=== PATIENT | female | born 1935 | race Caucasian/White ===

== ENCOUNTER 2018-02-02 03:04 | Emergency (ER) | payer OTHER, BC ==
[~2018-02-02] VITALS: Ht 160 cm; Wt 73.1 kg
[~2018-02-02 03:04] MED LIST: ADVAIR 100/501 DISK IH; ANTIVERT25 MG PO; CALCIUM 500 MG1 EACH PO; CIPRO500 MG PO; LIPITOR20 MG PO; ONE DAILY FOR1 EAC3 PO; PROAIR HFA8.5 GM IH; PYRIDIUM200 MG PO; TIROSINT50 MCG PO; VITAMIN C1000 MG PO; ZYRTEC10 M1 PO
[2018-02-02 05:22] LABS: HEMATOCRIT 41.6 % (36.0-46.0); HEMOGLOBIN 14.1 G/DL (11.9-15.5); MCH 32.5 PG (29.0-34.0); MCHC 33.9 G/DL (30.0-36.0); MCV 95.9 FL (83-99); RBC DIS.WIDTH-SD 46.4 % (39-53); RED BLOOD COUNT 4.34 M/uL (3.80-5.20); WHITE BLOOD COUNT 8.4 K/uL (4.1-10.2)
[2018-02-02 05:33] LABS: CHLORIDE 106 mEq/L (99-109); POTASSIUM 4.2 mEq/L (3.7-5.4); SODIUM 144 mEq/L (136-147)
[2018-02-02 05:35] LABS: GLUCOSE 101 mg/dL (70-99)
[2018-02-02 05:39] LABS: CREATININE 0.8 mg/dL (0.6-1.3); GFR ESTIMATE (CALCULATED) > 59 mL/min/
[2018-02-02] MEDS ORDERED: SKELAXIN800 MG PO (05:39)
[2018-02-02] MEDS ORDERED: MOBIC7.5 MG PO (05:39)
[2018-02-02 05:40] LABS: UREA NITROGEN (BUN) 21 mg/dL (9-23)
[2018-02-02 05:45] LABS: TROP-I INTERPRETATION NEGATIVE; TROPONIN-I < 0.01 ng/mL (0.0-0.30)
[2018-02-02 06:15] VITALS: BP 163/78
[2018-02-02 07:16] LABS: PLAT.SUFFICIENCY ADEQUATE; PLATELET COUNT 215 K/uL (156-360)
== END 2018-02-02 06:15 | disposition home or self-care (01) ==
LOC: EME 03:04
PROVIDERS: Physician Assistant
DX: M54.12 Radiculopathy, cervical region (principal); E78.5 Hyperlipidemia, unspecified; J45.909 Unspecified asthma, uncomplicated; Z85.3 Personal history of malignant neoplasm of breast; E03.9 Hypothyroidism, unspecified; Z87.891 Personal history of nicotine dependence
CPT/HCPCS: 80048; 84484; 85027; 93005; 99281; 99284